=== PATIENT | male | born 1990 | race Caucasian/White ===

== ENCOUNTER 2018-03-27 10:29 | Emergency (ER) | payer BC ==
[2018-03-27] MEDS ORDERED: ONDANSETRON 4 MG/2 ML VIAL ONE ×2 (11:06→14:48)
[2018-03-27] MEDS ORDERED: DIPHENOX/ATROP SULF 1 TAB PO ONE (11:06)
[2018-03-27] MEDS ORDERED: FAMOTIDINE 20 MG/2 ML VIAL IV ONE (11:06)
[2018-03-27] MEDS ORDERED: NA CHLORIDE 0.9% 1,000 ML ONE (11:07)
[2018-03-27 11:15] LABS: Absolute Lymphocytes (CBC) 0.5 K/uL (0.7-4.9); Absolute Monocytes 0.7 K/uL (0.1-1.3); Absolute Neutrophil 18.6 K/uL (1.8-8.0); Basophils % 0.3 % (0-1.3); Eosinophils % 0.2 % (0-4.4); Hematocrit 53.6 % (39.6-49.0); Lymphocytes % 2.5 % (15.3-44.8); MCH 29.5 pg (27.0-35.0); MPV 9.7 fL (7.6-11.3); Monocytes % 3.4 % (3.3-12.3); RBC Red Blood Cell Count 6.02 M/uL (4.33-5.43)
[2018-03-27 11:43] LABS: Potassium 3.8 mEq/L (3.6-5.0)
[2018-03-27 11:49] LABS: Albumin 4.7 g/dL (3.2-5.5); Bilirubin Direct 0.2 mg/dL (0-0.2); Bilirubin Total 1.5 mg/dL (0.3-1.2); Protein, Total 7.9 g/dL (6.0-8.3)
[2018-03-27 12:30] LABS: Urine Bacteria <20 /HPF (NONE SEEN); Urine RBC <5 /HPF (NONE SEEN)
[2018-03-27 12:31] LABS: Urine Culture Reflex Order NOT NEEDED; Urine Mucus 1+ /HPF (NONE SEEN)
[2018-03-27] MEDS ORDERED: KETOROLAC 30 MG/ML INJ ONE (12:43)
[2018-03-27] MEDS ORDERED: METRONIDAZOLE 500mg IVPB 500 MG/100 ML BAG IV ONE (12:51)
[2018-03-27] MEDS ORDERED: CIPROFLOXACIN HCL 500 MG TAB ONE (12:51)
[2018-03-27 13:12] LABS: Urine Blood NEGATIVE (NEG); Urine Glucose NEGATIVE (NEG); Urine Protein NEGATIVE (NEG); Urine Specific Gravity 1.025 (1.005-1.030)
--- NOTE | 2018-03-27 13:29 | RAD REPORT ---
EXAM DESCRIPTION: CT - Abdomen Pelvis W Contrast - 03/27/2018 1:01 pm CLINICAL HISTORY: Abdominal pain, diarrhea, vomiting, prior appendectomy COMPARISON: None. TECHNIQUE: Biphasic, helical CT imaging of the abdomen and pelvis was performed following 100 ml non -ionic IV contrast. Oral contrast was given. All CT scans are performed using dose optimization technique as appropriate and may include automated exposure control or mA/KV adjustment according to patient size. FINDINGS: No suspicious findings in the lung bases. The liver, spleen, and pancreas show no suspicious findings. Gallbladder and biliary tree are also wi thout suspicious finding. Symmetric renal function is seen with no hydronephrosis or suspicious renal mass. Fluid is present in nondilated stomach. No gastric wall thickening, mass or edema. Mild prominence at the antrum is probably a peristalsis artifact. A minimal antritis would be possible. No duodenum abn ormality. No dilated jejunum or focal proximal small bowel abnormality. Nondilated fluid-filled dista l small bowel loops are present. Small amount of stool present in the left side of the colon. A prima ry, acute colon process is not seen. No free air, free fluid or inflammatory stranding. No hernia, mass or bulky lymphadenopathy. The u rinary bladder is without significant finding. No adrenal abnormality. Clips are seen from prior appe ndectomy. Small metallic clips are scattered elsewhere in the peritoneal cavity, possibly dislodged f rom the remote appendectomy. These are not regarded as significant. No suspicious bony findings. IMPRESSION: No obstruction, free air or surgically emergent finding. Fluid-filled stomach and fluid-filled distal small bowel would be consistent with a nonspecific gastr oenteritis. Slight prominence of the gastric antrum velásquez probably peristalsis artifact. A mild antri tis would be possible.
--- NOTE | 2018-03-27 13:46 | ER ---
Nurse's Notes [facility] Name: Chi Malone Age: 27 yrs Sex: Male : 1990 Arrival Date: 03/27/2018 Time: 10:33 Bed 13 Private MD: Jc Matt E Diagnosis: Gastroenteritis, nausea, vomiting, diarrhea, abdominal pain Presentation: 03/27 10:50 Presenting complaint: Patient states: " I've been throwing up and having diarrhea all ph morning." Pt reports diffuse abdominal pain N/V/D, denies fever, pt vomiting in triage, small amount of "foamy" emesis noted. Transition of care: patient was not received from another setting of care. Onset of symptoms was March 27, 2018. Risk Assessment: Do you want to hurt yourself or someone else? Patient reports no desire to harm self or others. Initial Sepsis Screen: Does the patient meet any 2 criteria? No. Patient's initial sepsis screen is negative. Does the patient have a suspected source of infection? No. Patient's initial sepsis screen is negative. Care prior to arrival: None. 10:50 Method Of Arrival: Ambulatory ph 10:50 Acuity: JULI 3 ph Historical: - Allergies: 10:52 Nickel; ph - Home Meds: 10:52 None [Active]; ph - PMHx: 10:52 None; ph - PSHx: 10:52 Tonsillectomy; Appendectomy; ph - Immunization history:: Adult Immunizations unknown. - Social history:: Smoking status: Patient/guardian denies using tobacco. - Ebola Screening: : No symptoms or risks identified at this time. Screenin:11 Abuse screen: Denies threats or abuse. Denies injuries from another. Nutritional aj screening: No deficits noted. Tuberculosis screening: No symptoms or risk factors identified. Fall Risk None identified. Assessment: 11:11 General: Appears in no apparent distress. ill, Behavior is calm, cooperative. Pain: aj Complains of pain in abdomen. Neuro: Level of Consciousness is awake, alert, obeys commands, Oriented to person, place, time, situation. Respiratory: Airway is patent Respiratory effort is even, unlabored, Respiratory pattern is regular, symmetrical. GI: Abdomen is flat, non-distended, Bowel sounds present X 4 quads. Abd is soft and non tender Reports diarrhea, nausea, vomiting. Derm: Skin is intact, is healthy with good turgor, Skin is pink, warm \\T\\ dry. normal. 15:42 Reassessment: Patient appears in no apparent distress at this time. No changes from aj previously documented assessment. Patient and/or family updated on plan of care and expected duration. Pain level reassessed. Patient is alert, oriented x 3, equal unlabored respirations, skin warm/dry/pink. Patient states feeling better. Patient states symptoms have improved. Vital Signs: 10:51 BP 128 / 75; Pulse 99; Resp 18; Temp 98.2; Pulse Ox 96% on R/A; Weight 88.45 kg; Height ph 5 ft. 11 in. (180.34 cm); Pain 7/10; 11:59 BP 125 / 62; Pulse 86; Resp 16; Pulse Ox 99% on R/A; aj 14:13 BP 123 / 62; Pulse 63; Resp 18; Pulse Ox 100% on R/A; dh3 15:42 BP 127 / 63; Pulse 70; Resp 16; Pulse Ox 99% on R/A; aj 10:51 Body Mass Index 27.20 (88.45 kg, 180.34 cm) ph ED Course: 10:33 Patient arrived in ED. mr 10:34 Jc Matt MD is Private Physician. mr 10:35 Lalo Garcia MD is Attending Physician. kdr 10:51 Triage completed. ph 10:52 Arm band placed on. ph 11:00 Initial lab(s) drawn, by vt, sent to lab. Inserted saline lock: 20 gauge in right ph antecubital area, using aseptic technique. Blood collected. 11:09 Clarice Roberson, RN is Primary Nurse. aj 11:11 Patient has correct armband on for positive identification. aj 11:11 No provider procedures requiring assistance completed. aj 12:[address] via stretcher. sw 12:57 CT completed. Patient tolerated procedure well. Patient moved back from CT. sw 13:01 CT Abd/Pelvis - W/Contrast In Process Unspecified. EDMS 13:44 Jc Matt MD is Referral Physician. kdr 15:42 IV discontinued, intact, bleeding controlled, No redness/swelling at site. Pressure aj dressing applied. Administered Medications: 11:10 Drug: Zofran 4 mg Route: IVP; Site: right antecubital; aj 15:46 Follow up: Response: No adverse reaction aj 11:10 Drug: Pepcid 20 mg Route: IVP; Site: right antecubital; aj 15:46 Follow up: Response: No adverse reaction; Pain is decreased; Nausea is decreased aj 11:10 Drug: LoMOTIL 2 tabs Route: PO; aj 15:45 Follow up: Response: No adverse reaction aj 11:11 Drug: NS 0.9% 1000 ml Route: IV; Rate: 1 bolus; Site: right antecubital; aj 15:46 Follow up: Response: No adverse reaction; IV Status: Completed infusion; IV Intake: aj 1000ml 12:45 Drug: TORadol 30 mg Route: IVP; Site: right antecubital; aj 15:45 Follow up: Response: No adverse reaction; Pain is decreased aj 13:13 Drug: Flagyl 500 mg Volume: 100 ml; Route: IVPB; Rate: 200 ml/hr; Infused Over: 30 aj mins; Site: right antecubital; 15:45 Follow up: Response: Marked relief of symptoms; IV Status: Completed infusion; IV aj Intake: 200ml 13:13 Drug: Cipro 500 mg Route: PO; aj 15:44 Follow up: Response: No adverse reaction aj Intake: 15:45 IV: 200ml; Total: 200ml. aj 15:46 IV: 1000ml; Total: 1200ml. aj Outcome: 13:45 Discharge ordered by . kdr 15:42 Discharged to home ambulatory. aj 15:42 Condition: good 15:42 Discharge instructions given to patient, family, Instructed on discharge instructions, follow up and referral plans. medication usage, Demonstrated understanding of instructions, follow-up care, medications, Prescriptions given X 6 15:47 Patient left the ED. aj Signatures: Dispatcher [employer] EDClarice Bell RN RN aj Rittger, Kevin, MD MD kdr Rivera, Maria mr Hall, Patricia, RN RN Raad, Chelsi Tracy [facility]
--- NOTE | 2018-03-27 13:46 | EDPHYS ---
Physician Documentation [facility] Name: Chi Malone Age: 27 yrs Sex: Male : 1990 Arrival Date: 03/27/2018 Time: 10:33 Bed 13 Private MD: Jc Matt E ED Physician Lalo Garcia Historical: - Allergies: 03/27 10:52 Nickel; ph - Home Meds: 10:52 None [Active]; ph - PMHx: 10:52 None; ph - PSHx: 10:52 Tonsillectomy; Appendectomy; ph - Immunization history:: Adult Immunizations unknown. - Social history:: Smoking status: Patient/guardian denies using tobacco. - Ebola Screening: : No symptoms or risks identified at this time. Vital Signs: 10:51 BP 128 / 75; Pulse 99; Resp 18; Temp 98.2; Pulse Ox 96% on R/A; Weight 88.45 kg; Height ph 5 ft. 11 in. (180.34 cm); Pain 7/10; 11:59 BP 125 / 62; Pulse 86; Resp 16; Pulse Ox 99% on R/A; aj 14:13 BP 123 / 62; Pulse 63; Resp 18; Pulse Ox 100% on R/A; dh3 15:42 BP 127 / 63; Pulse 70; Resp 16; Pulse Ox 99% on R/A; aj 10:51 Body Mass Index 27.20 (88.45 kg, 180.34 cm) ph MDM: 13:45 Patient medically screened. kdr 03/27 10:59 Order name: Basic Metabolic Panel; Complete Time: 12:42 kdr 03/27 10:59 Order name: CBC with Diff; Complete Time: 12:42 kdr 03/27 10:59 Order name: Creatinine for Radiology; Complete Time: 12:42 kdr 03/27 10:59 Order name: Hepatic Function; Complete Time: 12:42 kdr 03/27 10:59 Order name: Lipase; Complete Time: 12:42 kdr 03/27 10:59 Order name: Urine Microscopic Only; Complete Time: 12:42 kdr 03/27 12:41 Order name: CT Abd/Pelvis - W/Contrast; Complete Time: 13:44 kdr 03/27 12:46 Order name: Urine Dipstick--Ancillary (enter results); Complete Time: 13:14 bd 03/27 10:59 Order name: IV Saline Lock; Complete Time: 11:20 kdr 03/27 10:59 Order name: Labs collected and sent; Complete Time: 11:20 kdr 03/27 10:59 Order name: Urine Dipstick-Ancillary (obtain specimen); Complete Time: 12:21 kdr Administered Medications: 11:10 Drug: Zofran 4 mg Route: IVP; Site: right antecubital; aj 15:46 Follow up: Response: No adverse reaction aj 11:10 Drug: Pepcid 20 mg Route: IVP; Site: right antecubital; aj 15:46 Follow up: Response: No adverse reaction; Pain is decreased; Nausea is decreased aj 11:10 Drug: LoMOTIL 2 tabs Route: PO; aj 15:45 Follow up: Response: No adverse reaction aj 11:11 Drug: NS 0.9% 1000 ml Route: IV; Rate: 1 bolus; Site: right antecubital; aj 15:46 Follow up: Response: No adverse reaction; IV Status: Completed infusion; IV Intake: aj 1000ml 12:45 Drug: TORadol 30 mg Route: IVP; Site: right antecubital; aj 15:45 Follow up: Response: No adverse reaction; Pain is decreased aj 13:13 Drug: Flagyl 500 mg Volume: 100 ml; Route: IVPB; Rate: 200 ml/hr; Infused Over: 30 aj mins; Site: right antecubital; 15:45 Follow up: Response: Marked relief of symptoms; IV Status: Completed infusion; IV aj Intake: 200ml 13:13 Drug: Cipro 500 mg Route: PO; aj 15:44 Follow up: Response: No adverse reaction aj Disposition: 03/27/18 13:45 Discharged to Home. Impression: Gastroenteritis, nausea, vomiting, diarrhea, abdominal pain. - Condition is Stable. - Discharge Instructions: Viral Gastroenteritis, [id number]. - Prescriptions for Pepcid 20 mg Oral Tablet - take 1 tablet by ORAL route once daily for 10 days; 10 tablet. Flagyl 500 mg Oral Tablet - take 1 tablet by ORAL route every 6 hours for 10 days; 40 tablet. Zofran 4 mg Oral Tablet - take 1 tablet by ORAL route every 12 hours As needed; 20 tablet. Cipro 500 mg Oral Tablet - take 1 tablet by ORAL route every 12 hours for 7 days; 14 tablet. Tramadol 50 mg Oral Tablet - take 1 tablet by ORAL route every 8 hours as needed; 12 tablet. Lomotil 2.5- 0.025 mg Oral Tablet - take 1 tablet by ORAL route every 6 hours As needed; 20 tablet. - Medication Reconciliation Form, Thank You Letter, Antibiotic Education, Prescription Opioid Use form. - Follow up: Jc Matt MD; When: 2 - 3 days; Reason: If symptoms return, Further diagnostic work-up, Recheck today's complaints, Continuance of care, Re-evaluation by your physician. - Problem is new. - Symptoms have improved. Signatures: Dispatcher [employer] EDMS Clarice Roberson RN RN aj Lalo Garcia MD MD kdr Jahaira Schaffer RN RN ph Corrections: (The following items were deleted from the chart) 15:47 13:45 03/27/2018 13:45 Discharged to Home. Impression: Gastroenteritis, nausea, aj vomiting, diarrhea, abdominal pain. Condition is Stable. Forms are Medication Reconciliation Form, Thank You Letter, Antibiotic Education, Prescription Opioid Use. Follow up: Jc Matt; When: 2 - 3 days; Reason: If symptoms return, Further diagnostic work-up, Recheck today's complaints, Continuance of care, Re-evaluation by your physician. Problem is new. Symptoms have improved. kdr
[2018-03-27] MEDS ORDERED: HYDROCODONE/APAP 5/325 MG TAB ONE (14:25)
[2018-03-27 15:53] VITALS: TEMP 98.2
[2018-03-27 15:56] VITALS: BP 127/63; O2SAT 99
== END 2018-03-27 15:47 | disposition home or self-care (01) ==
LOC: ER 10:29
DX: K52.9 Noninfective gastroenteritis and colitis, unspecified (principal); R10.9 Unspecified abdominal pain; Z91.048 Other nonmedicinal substance allergy status
CPT/HCPCS: 36415; 74177; 80048; 80076; 81003; 81015; 83690; 85025; 96361; 96365; 96366; 96375; 99284; J2405; J7030; Q9967

== ENCOUNTER 2019-02-15 08:36 | Emergency (ER) | payer BC, OTHER, SELFPAY ==
[2019-02-15] MEDS ORDERED: LORAZEPAM 0.5 MG TABLET ONE (10:21)
[2019-02-15 10:26] LABS: Absolute Lymphocytes (CBC) 1.3 K/uL (0.7-4.9); Absolute Monocytes 0.4 K/uL (0.1-1.3); Absolute Neutrophil 4.5 K/uL (1.8-8.0); Basophils % 0.5 % (0-1.3); Eosinophils % 0.2 % (0-4.4); Lymphocytes % 21.4 % (15.3-44.8); Monocytes % 6.4 % (3.3-12.3); RBC Red Blood Cell Count 5.73 M/uL (4.33-5.43)
[2019-02-15 10:47] LABS: BUN Blood Urea Nitrogen 14 mg/dL (7-18); Bicarbonate 25 mmol/L (21-32); Glucose Level 92 mg/dL (74-106); Potassium 3.8 mmol/L (3.5-5.1); Sodium Level 141 mmol/L (136-145); Troponin (Emerg Dept Use Only) < 0.02 ng/mL (0.0-0.045)
--- NOTE | 2019-02-15 11:06 | EDPHYS ---
Physician Documentation [facility] Name: Chi Malone Age: 28 yrs Sex: Male : 1990 Arrival Date: 02/15/2019 Time: 08:37 Bed 13 Private MD: ED Physician Ricardo Torres HPI: 02/15 11:01 This 28 yrs old Male presents to ER via Ambulatory with complaints of Chest kb Pain, Anxiety. 11:01 The patient presents to the emergency department with anxiety, over unknown kb circumstances. Onset: The symptoms/episode began/occurred yesterday. Past psychiatric history: Prior diagnosis: anxiety. Associated signs and symptoms: Pertinent positives; anxiety, chest pain, tremor. Severity of symptoms: At their worst the symptoms were moderate in the emergency department the symptoms are unchanged. The patient has experienced similar episodes in the past. The patient has not recently seen a physician. Pt states he has a history of anxiety, but hasn't had it in a long time. Took lorazepam for it in the past. Started having "bad anxiety" yesterday and had to leave work. Reports sleeping most of yesterday and tried to sleep last night, but still having anxiety, chest tightness, decreased appetite, and shakiness this morning. Went to work, but vomited after trying to eat breakfast. States he has been under a lot of stress, hasn't been sleeping much so that could be the trigger. Also reports use of preworkout and going to the gym late so that could contribute as well. . Historical: - Allergies: 09:12 Nickel; aa5 - Home Meds: 09:12 None [Active]; aa5 - PMHx: 09:12 None; aa5 - PSHx: 09:12 Tonsillectomy; Appendectomy; aa5 - Immunization history:: Flu vaccine is not up to date. - Social history:: Smoking status: Patient/guardian denies using tobacco. - Ebola Screening: : No symptoms or risks identified at this time. ROS: 10:58 Constitutional: Negative for fever, chills, and weight loss, ENT: Negative for injury, kb pain, and discharge, Neck: Negative for injury, pain, and swelling, Respiratory: Negative for shortness of breath, cough, wheezing, and pleuritic chest pain, Abdomen/GI: Negative for abdominal pain, nausea, vomiting, diarrhea, and constipation, Back: Negative for injury and pain, : Negative for injury, bleeding, discharge, and swelling, MS/Extremity: Negative for injury and deformity, Skin: Negative for injury, rash, and discoloration. 10:58 Cardiovascular: Positive for chest pain, tightness to center of chest. 10:58 Neuro: Positive for tremor. 10:58 Psych: Positive for anxiety. Exam: 10:58 Constitutional: This is a well developed, well nourished patient who is awake, alert, kb and in no acute distress. Head/Face: Normocephalic, atraumatic. ENT: Nares patent. No nasal discharge, no septal abnormalities noted. Tympanic membranes are normal and external auditory canals are clear. Oropharynx with no redness, swelling, or masses, exudates, or evidence of obstruction, uvula midline. Mucous membranes moist. Neck: Trachea midline, no thyromegaly or masses palpated, and no cervical lymphadenopathy. Supple, full range of motion without nuchal rigidity, or vertebral point tenderness. No Meningismus. Chest/axilla: Normal chest wall appearance and motion. Nontender with no deformity. No lesions are appreciated. Cardiovascular: Regular rate and rhythm with a normal S1 and S2. No gallops, murmurs, or rubs. Normal PMI, no JVD. No pulse deficits. Respiratory: Lungs have equal breath sounds bilaterally, clear to auscultation and percussion. No rales, rhonchi or wheezes noted. No increased work of breathing, no retractions or nasal flaring. Abdomen/GI: Soft, non-tender, with normal bowel sounds. No distension or tympany. No guarding or rebound. No evidence of tenderness throughout. Skin: Warm, dry with normal turgor. Normal color with no rashes, no lesions, and no evidence of cellulitis. MS/ Extremity: Pulses equal, no cyanosis. Neurovascular intact. Full, normal range of motion. Neuro: Awake and alert, GCS 15, oriented to person, place, time, and situation. Cranial nerves II-XII grossly intact. Motor strength 5/5 in all extremities. Sensory grossly intact. Cerebellar exam normal. Normal gait. 10:58 Psych: Behavior/mood is cooperative, anxious, Affect is calm, Oriented to person, place, time, Patient has no thoughts/intents to harm self or others. Judgement / Insight is normal. Memory is normal. Delusions/hallucinations are not present. 11:11 ECG was reviewed by the Attending Physician. kb Vital Signs: 09:13 BP 130 / 73; Pulse 84; Resp 18 S; Temp 98.4(TE); Pulse Ox 100% on R/A; Weight 88.45 kg aa5 (R); Height 5 ft. 11 in. (180.34 cm) (R); Pain 6/10; 10:27 BP 127 / 74; Pulse 81; Resp 18; Pulse Ox 98% on R/A; ph 11:28 BP 122 / 68; Pulse 76; Resp 20; Temp 98.0; Pulse Ox 100% on R/A; ph 09:13 Body Mass Index 27.20 (88.45 kg, 180.34 cm) aa5 MDM: 09:51 Patient medically screened. kb 10:59 Data reviewed: vital signs, nurses notes. Data interpreted: Pulse oximetry: on room air kb is 98 %. Interpretation: normal. Counseling: I had a detailed discussion with the patient and/or guardian regarding: the historical points, exam findings, and any diagnostic results supporting the discharge/admit diagnosis, lab results, the need for outpatient follow up, a family practitioner, to return to the emergency department if symptoms worsen or persist or if there are any questions or concerns that arise at home. ED course: Pt is feeling better after medication. Has appt on Friday for follow up with PCP. Educated to reduce stress as much as possible, stop using preworkout and to get adequate amounts of sleep. Verbal understanding received. . 02/15 09:59 Order name: CBC with Diff; Complete Time: 10:29 kb 02/15 09:59 Order name: Basic Metabolic Panel; Complete Time: 10:53 kb 02/15 09:59 Order name: Troponin (emerg Dept Use Only); Complete Time: 10:53 kb EC:11 Rate is 71 beats/min. Rhythm is regular, Normal Sinus Rhythm. QRS [place] is Normal. SC kb interval is normal at 152 msec. QRS interval is normal at 88 msec. QT interval is normal at 372 msec. Clinical impression: Normal ECG. Interpreted by me. Reviewed by me. Administered Medications: 10:10 Drug: Ativan 0.5 mg Route: PO; ph 11:26 Follow up: Response: No adverse reaction; Anxiety decreased ph Disposition: 02/15/19 11:05 Discharged to Home. Impression: Anxiety disorder, unspecified. - Condition is Stable. - Discharge Instructions: Panic Attacks, [id number]. - Prescriptions for Hydroxyzine HCl 25 mg Oral Tablet - take 1 tablet by ORAL route every 8 hours As needed; 30 tablet. - Medication Reconciliation Form, Thank You Letter, Antibiotic Education, Prescription Opioid Use, Work release form form. - Follow up: Emergency Department; When: As needed; Reason: Worsening of condition. Follow up: Private Physician; When: 2 - 3 days; Reason: Recheck today's complaints, Continuance of care, Re-evaluation by your physician. Signatures: Dispatcher [employer] Stephanie Zamarripa, MERY-Cecilia ORDONEZ-Kenzie Ugalde, RN RN aa5 Jahaira Schaffer RN RN ph Corrections: (The following items were deleted from the chart) 11:28 11:05 02/15/2019 11:05 Discharged to Home. Impression: Anxiety disorder, unspecified. ph Condition is Stable. Forms are Medication Reconciliation Form, Thank You Letter, Antibiotic Education, Prescription Opioid Use. Follow up: Emergency Department; When: As needed; Reason: Worsening of condition. Follow up: Private Physician; When: 2 - 3 days; Reason: Recheck today's complaints, Continuance of care, Re-evaluation by your physician. kb
--- NOTE | 2019-02-15 11:06 | ER ---
Nurse's Notes [facility] Name: Chi Malone Age: 28 yrs Sex: Male : 1990 Arrival Date: 02/15/2019 Time: 08:37 Bed 13 Private MD: Diagnosis: Anxiety disorder, unspecified Presentation: 02/15 09:10 Presenting complaint: Patient states: "I've been having anxiety and I thought it was aa5 because I haven't slept much". Pt states "I used to take lorazepam a while back". Pt also c/o chest tightness today, reports decreased appetite and vomiting today. 09:10 Transition of care: patient was not received from another setting of care. Onset of aa5 symptoms was January 2019. Risk Assessment: Do you want to hurt yourself or someone else? Patient reports no desire to harm self or others. Initial Sepsis Screen: Does the patient meet any 2 criteria? No. Patient's initial sepsis screen is negative. Does the patient have a suspected source of infection? No. Patient's initial sepsis screen is negative. Care prior to arrival: None. 09:10 Method Of Arrival: Ambulatory aa5 09:10 Acuity: JULI 3 aa5 Historical: - Allergies: 09:12 Nickel; aa5 - Home Meds: 09:12 None [Active]; aa5 - PMHx: 09:12 None; aa5 - PSHx: 09:12 Tonsillectomy; Appendectomy; aa5 - Immunization history:: Flu vaccine is not up to date. - Social history:: Smoking status: Patient/guardian denies using tobacco. - Ebola Screening: : No symptoms or risks identified at this time. Screenin:26 Abuse screen: Denies threats or abuse. Denies injuries from another. Nutritional ph screening: No deficits noted. Tuberculosis screening: No symptoms or risk factors identified. Fall Risk None identified. Assessment: 10:23 General: Appears in no apparent distress. comfortable, well groomed, Behavior is calm, ph cooperative, appropriate for age, Reports "feeling anxious for a few days.". Pain: Complains of pain in anterior aspect of left upper chest Pain does not radiate. Quality of pain is described as sharp, Pain began 1 day ago. Is intermittent. Neuro: Level of Consciousness is awake, alert, obeys commands, Oriented to person, place, time, situation. Cardiovascular: Reports chest pain, lightheadedness, nausea, shortness of breath, vomiting, Denies palpitations, Capillary refill < 3 seconds in bilateral fingers Patient's skin is warm and dry. Chest pain quality is sharp, is located in left anterior chest wall episodes are intermittent. Respiratory: Airway is patent Respiratory effort is even, unlabored, Breath sounds are clear bilaterally. GI: Reports nausea, vomiting, Patient currently denies abdominal pain, diarrhea. Derm: Skin is intact, is healthy with good turgor, Skin is pink, warm \\T\\ dry. Musculoskeletal: Circulation, motion, and sensation intact. Range of motion: intact in all extremities. 10:27 Reassessment: Patient appears in no apparent distress at this time. Patient and/or ph family updated on plan of care and expected duration. Pain level reassessed. Patient is alert, oriented x 3, equal unlabored respirations, skin warm/dry/pink. Pt given PO medication for anxiety approx 15 min ago, see MAR, states, " I am already starting to feel better.", mother at bedside, awaiting lab results. 11:26 Reassessment: Patient appears in no apparent distress at this time. Patient and/or ph family updated on plan of care and expected duration. Pain level reassessed. Patient is alert, oriented x 3, equal unlabored respirations, skin warm/dry/pink. Pt d/c home w/ family Patient states symptoms have improved. Vital Signs: 09:13 BP 130 / 73; Pulse 84; Resp 18 S; Temp 98.4(TE); Pulse Ox 100% on R/A; Weight 88.45 kg aa5 (R); Height 5 ft. 11 in. (180.34 cm) (R); Pain 6/10; 10:27 BP 127 / 74; Pulse 81; Resp 18; Pulse Ox 98% on R/A; ph 11:28 BP 122 / 68; Pulse 76; Resp 20; Temp 98.0; Pulse Ox 100% on R/A; ph 09:13 Body Mass Index 27.20 (88.45 kg, 180.34 cm) aa5 ED Course: 08:37 Patient arrived in ED. as 09:11 Triage completed. aa5 09:11 Arm band placed on. aa5 09:17 EKG completed in triage. Results shown to aa5 09:37 EKG done, by domestic technician. dt2 09:51 Stephanie Osborne F[facility]-C [facility]. kb 09:51 Ricardo Torres MD is Attending Physician. kb 09:51 Jahaira Schaffer, RN is Primary Nurse. ph 10:15 Initial lab(s) drawn, by me, sent to lab. Inserted saline lock: 20 gauge in right ph antecubital area, using aseptic technique. Blood collected. 10:26 Patient has correct armband on for positive identification. Call light in reach. Side ph rails up X 1. Pulse ox on. NIBP on. Door closed. Noise minimized. Warm blanket given. 10:27 Patient maintains SpO2 saturation greater than 95% on room air. ph 11:27 No provider procedures requiring assistance completed. IV discontinued, intact, ph bleeding controlled, No redness/swelling at site. Pressure dressing applied. Administered Medications: 10:10 Drug: Ativan 0.5 mg Route: PO; ph 11:26 Follow up: Response: No adverse reaction; Anxiety decreased ph Outcome: 11:05 Discharge ordered by MD. kb 11:27 Discharged to home ambulatory, with family. ph 11:27 Condition: improved 11:27 Discharge instructions given to patient, Instructed on discharge instructions, follow up and referral plans. medication usage, Demonstrated understanding of instructions, follow-up care, medications, Prescriptions given X 1. 11:28 Patient left the ED. ph Signatures: Stephanie Osborne FNP-C FNP-Ckb Martinez, Amelia as Calderon, Audri, RN RN aa5 Jahaira Schaffer RN RN Leandra Shannon dt2 Corrections: (The following items were deleted from the chart) 09:13 09:10 Presenting complaint: Patient states: "I've been having anxiety and I thought it aa5 was because I haven't slept much". Pt states "I used to take lorazepam a while back" aa5 09:16 09:13 Pulse 84bpm; Resp 18bpm; Spontaneous; Pulse Ox 100% RA; Temp 98.4F Temporal; aa5 88.45 kg Reported; Height 5 ft. 11 in. Reported; BMI: 27.2; Pain 6/10; aa5
[2019-02-15 11:54] VITALS: BP 122/68; TEMP 98; O2SAT 100
--- NOTE | 2019-02-15 13:44 | EKG ---
Test Date: 2019-02-15 Test Time: 09:24:32 Pipe Stripper: ALBA MEASUREMENT RESULTS: Intervals: Rate: 71 NE: 152 QRSD: 88 QT: 372 QTc: 404 [place]: P: 73 NE: 152 QRS: 77 T: 82 INTERPRETIVE STATEMENTS: Normal sinus rhythm with sinus arrhythmia Normal ECG Compared to ECG 01/14/2015 06:34:53 No significant changes Electronically Signed On 02-15-19 13:43:44 CDT by Figueroa Emanule
== END 2019-02-15 11:28 | disposition home or self-care (01) ==
LOC: ER 08:36
DX: F41.9 Anxiety disorder, unspecified (principal); Z91.048 Other nonmedicinal substance allergy status
CPT/HCPCS: 36415; 80048; 84484; 85025; 93005